=== PATIENT | female | born 1985 | race Caucasian/White ===

== ENCOUNTER 2017-07-08 08:25 | Day surgery (SDC) | payer OTHER ==
[~2017-07-08] VITALS: Ht 158.8 cm; Wt 65.0 kg
[2017-07-08] MEDS ORDERED: LIDOCAINE HCL/PF 2% 5 ML VIAL IM ONE (08:26)
[2017-07-08] MEDS ORDERED: FentaNYL CITRATE-PF 100 MCG/2 ML VIAL IVP ONE (08:26)
[2017-07-08] MEDS ORDERED: KETOROLAC TROMETHAMINE 60 MG/2 ML VIAL IM ONE (08:26)
[2017-07-08] MEDS ORDERED: DEXAMETHASONE SOD PHOS 4 MG/ML VIAL IVP ONE (08:26)
[2017-07-08] MEDS ORDERED: PROPOFOL 1% 20 ML VIAL IVP ONE (08:26)
[2017-07-08] MEDS ORDERED: ONDANSETRON HCL 4 MG/2 ML VIAL IVP ONE (08:26)
[2017-07-08] MEDS ORDERED: METOCLOPRAMIDE HCL 5 MG/ML 2 ML VIAL IVP ONE (08:26)
[2017-07-08] MEDS ORDERED: MIDAZOLAM HCL 2 MG/2 ML VIAL IVP ONE (08:26)
[2017-07-08] MEDS ORDERED: RINGERS SOLUTION,LACTATED 1,000 ML IV ONE ×2 (08:30→08:37)
[2017-07-08] MEDS ORDERED: CeFAZolin 2 GM/DEXTROSE 50 ML IV ONE ×2 (08:38→11:00)
[2017-07-08] MEDS ORDERED: IBUP-1506 PO (08:51)
[2017-07-08] MEDS ORDERED: BUPIVACAINE HCL/PF 0.5% 30 ML VIAL ONE (10:16)
[2017-07-08] MEDS ORDERED: LIDOCAINE HCL 2%/EPI 1:200,000/PF 10 ML VIAL ONE (10:16)
[2017-07-08] MEDS ORDERED: OXYGEN THERAPY IH SCH (10:45)
[2017-07-08] MEDS ORDERED: FentaNYL CITRATE-PF 100 MCG/2 ML VIAL IVP PRN (10:45)
[2017-07-08] MEDS ORDERED: GUM MASTIC/STORAX/MSAL/ALCOHOL LIQUID 0.67 ML VIAL TP ONE (10:45)
[2017-07-08] MEDS ORDERED: MEPERIDINE-PF 25 MG/ML SYRINGE IVP PRN (10:45)
[2017-07-08] MEDS ORDERED: HYDROmorphone 2 MG/ML SYRINGE IVP PRN (10:45)
[2017-07-08] MEDS ORDERED: ACETAMINOPHEN 500 MG TABLET PO PRN (11:15)
== END 2017-07-08 11:45 | disposition home or self-care (01) ==
LOC: SURGERY 08:25
PROVIDERS: ATTEND Surgery
DX: L72.0 Epidermal cyst (principal); L85.8 Other specified epidermal thickening; Z83.3 Family history of diabetes mellitus
CPT/HCPCS: 11404; 12032; 84703; 88304; J0690; J1100; J1885; J2250; J2405; J2704; J2765; J3010; J3490 ×3; J7120